=== PATIENT | male | born 1940 | race Caucasian/White ===

== ENCOUNTER 2018-10-13 14:37 | Inpatient (IN) | payer MEDICARE, BC ==
[~2018-10-13 14:37] MED LIST: Gadobenate Dimeglumine 529 MG/1 ML (20ML VIAL) ONE
[2018-10-13 15:20] LABS: #Basophils 0.1 thou/uL (0.0-0.2); #Eosinphils 0.3 thou/uL (0.0-0.7); #Lymphocytes 1.5 thou/uL (1.20-3.40); #Monocytes 0.6 thou/uL (0.11-0.59); #Neutrophils 5.4 thou/uL (1.40-6.50); %Basophils 0.9 % (0.0-1.0); %Eosinophils 3.9 % (0.0-10.0); %Lymphocytes 18.5 % (21.0-51.0); %Monocytes 7.7 % (0.0-10.0); %Neutrophils 69.1 % (42.0-75.0); Hemoglobin 15.4 g/dL (14.0-18.0); Mean Corpuscular HGB CONC 33.3 g/dL (32.0-36.0); Mean Corpuscular Hemoglobin 33.5 pg (27.0-31.0); Mean Platelet Volume 8.2 fL (7.4-10.4); Platelet Count 182 thou/uL (130-400); RBC Distribution Width 11.3 % (11.5-14.5); Red Blood Cell (RBC) Count 4.59 mill/uL (4.70-6.10); White Blood Cell (WBC) Count 7.9 thou/uL (4.8-10.8)
[2018-10-13 15:40] LABS: ALT (SGPT) 15 U/L (8-55); AST (SGOT) 16 U/L (5-34); Albumin 4.4 g/dL (3.4-4.8); Alkaline Phosphatase 45 U/L (40-150); Anion Gap 14 mmol/L (10-20); BUN (Urea Nitrogen) 11 mg/dL (8.4-25.7); Bilirubin, Total 0.6 mg/dL (0.2-1.2); Calc. Creatinine Clearance 0 mL/min (70-130); Calcium 10.3 mg/dL (7.8-10.44); Carbon Dioxide 25 mmol/L (23-31); Chloride 103 mmol/L (98-107); Estimated GFR-MDRD Greater than 90; Globulin 2.6 g/dL (2.4-3.5); Glucose 109 mg/dL (83-110); Sodium 138 mmol/L (136-145)
--- NOTE | 2018-10-13 16:36 | RAD ---
CHEST 1 VIEW: Date: 10/13/18 INDICATION: Emergency examination. Disorientation. COMPARISON: Prior exam dated 08/05/11. FINDINGS: There is patchy opacity within the left lower lobe with suspected small left pleural effusion. Right lung is clear. Heart size is upper limits of normal. Vascular calcification involving the aortic arch is stable. No acute osseous abnormality is evident. IMPRESSION: Patchy air space opacity in the left lower lobe and small left pleural effusion. Pneumonia is not exc luded. Recommend a 2 view chest radiograph for further evaluation. POS: TPC
--- NOTE | 2018-10-13 17:00 | CT ---
HEAD CT WITHOUT CONTRAST: 10/13/18 HISTORY: Two days of disorientation. Drooping of left facial region with vision changes. COMPARISON: None. FINDINGS: Questionable hyperdensity involving right cerebral sulci at the level of the temporal lobe. There is also subtle hyperdensity along the course of the right M1 segment. There is loss of michaels-white matter differentiation with evidence of predominantly vasogenic and to a lesser extent cytotoxic edema. The re is sulcal effacement. There is mass effect upon the right lateral ventricle. There is right to lef t subfalcine herniation of approximately 1.1 cm. Suprasellar cistern is maintained. There is effaceme nt of the right ambient cistern secondary to right uncal herniation. There is entrapment of the right lateral ventricle. Calvarium is intact. Adequate aeration of the sinuses and mastoid air cells. IMPRESSION: Mixture of vasogenic and cytotoxic edema involving the right cerebrum. Linear hyperdensities along t he sulci may represent hemorrhage versus thrombus. There is right to left subfalcine herniation. Find ings are presumed to be due to a subacute infarct. Better interrogation with pre and postcontrast br ain MRI is recommended to evaluate for infarct and exclude an underlying parenchymal lesion. Results of the study discussed with Lorna Quinteros, 10/13/18 at 4:26 p.m. Code CR POS: PRO
[2018-10-13 17:28] LABS: PTT 32.6 SEC (22.9-36.1); Prothrombin Time 12.9 SEC (12.0-14.7)
--- NOTE | 2018-10-13 18:48 | HP ---
PRIMARY CARE PHYSICIAN: Dr. Campbell. CHIEF COMPLAINT: My noticed that my face is drooping and having trouble getting up from a seated position. HISTORY OF PRESENT ILLNESS: Mr. Galeas is a pleasant 78-year-old gentleman, who has a history of hypertension and hyperlipidemia. He was in his usual state of health until about a week ago. His and the patient himself noticed that he was having lots of trouble with his back and his legs. His back was hurting more and his legs were bothering him. He was feeling weak and having difficulty getting up from a seated position. His also noted that he seemed off-balance when he was walking. Then this morning, she noticed that his face seemed to be drooping on the left side and also a day or two before, he had trouble driving home. He had turned down on the wrong street and was confused and could not make it back home. For these reasons, they brought him into the hospital for evaluation. In the ER, he had a CT scan of the brain done, which demonstrated a mixture of vasogenic and cytotoxic edema involving the right cerebrum. There was a [id number] falcine herniation. These were presumed to be due to a subacute infarct. However, an underlying parenchymal lesion could not be excluded. For this reason, he is being admitted. The patient has been evaluated by Neurosurgery in the ER and they are ordering a stat MRI at this time. Otherwise, the patient denies any other complaints such as chest pain or shortness of breath and he had a headache yesterday, but currently no headache, no dizziness, etc. REVIEW OF SYSTEMS: All systems were reviewed and are negative except for that mentioned in the history of present illness. PAST MEDICAL HISTORY: Significant for hypertension and hyperlipidemia. PAST SURGICAL HISTORY: He has had surgery on his right knee as well as back surgery in 2005. SOCIAL HISTORY: He is . He occasionally drinks. He is a nonsmoker. His code status is full code and his is his surrogate decision maker. ALLERGIES: NO KNOWN DRUG ALLERGIES. FAMILY HISTORY: Significant for brother, who had diabetes mellitus. CURRENT MEDICATIONS: Include; 1. Simvastatin 40 mg daily. 2. Losartan 50 mg daily. 3. Aspirin 81 mg a day. 4. Vitamin supplements. PHYSICAL EXAMINATION: GENERAL: He is alert and oriented. He appears to be in no acute distress. He is well developed and well nourished. He is oriented to person, place, and time. VITAL SIGNS: The blood pressure was 130/84, heart rate 65, respiratory rate of 18, and temperature is 98. HEENT: Pupils are equal, round, and reactive. Extraocular muscles are intact. His sclerae are anicteric. Throat; there are no erythema, no exudates. NECK: No adenopathy. No bruits. LUNGS: Clear to auscultation. There is no wheezing. No rales. No rhonchi. CARDIOVASCULAR: His heart sounds are slightly diminished or distant. His heart rate is regular, the rhythm is regular. There are no murmurs or clicks, no rubs. ABDOMEN: Soft. It is nontender and nondistended. Positive for bowel sounds. There is no rebound or guarding. EXTREMITIES: There is no edema. No calf tenderness. No joint effusions or warmth. NEUROLOGIC: His muscle strength, he did have some slight weakness in the left upper extremity with a left drift as well as significant weakness in the left lower extremity with decrease in his ability to plantar flex and dorsiflex the left foot. Cerebellar function was intact as well as his extraocular motions in the eye. His cranial nerves were intact except for a left facial droop. LABORATORY DATA: White blood cell count 7.9, hemoglobin 15.4, hematocrit is 46.2, and platelet count was 182. Sodium is 138, potassium 4.0, chloride is 103, CO2 is 25, BUN of 11, creatinine 0.8, glucose is 109, and calcium is 10.3. Troponin is less than 0.010 and CK was 87. INR was 1.0. IMAGING DATA: He had a chest x-ray, which by my reading, he has a mild cardiomegaly and what appeared to be increase in his pulmonary vascular markings in the right lower lobe, that is by my reading. ASSESSMENT AND PLAN: This is a pleasant 78-year-old gentleman who is being admitted for concern for acute infarct. He had significant changes on CT scan. He will be admitted to the ICU as per Neurosurgery recommendations. A stat MRI is being obtained. If this in fact proves to be an infarct, then we will perform the usual stroke workup including carotid Dopplers, echo and monitoring him on telemetry as well as obtaining a Neurology consult. If it appears to be a parenchymal lesion, then we will follow Neurology recommendations regarding that particular workup. We will treat this as an acute stroke at this time with aspirin therapy as there appears to be no evidence of bleed. Continue his statins and maintain blood pressure control and further recommendations are to follow. Job ID: [id number]
[2018-10-13] MEDS ORDERED: Acetaminophen 325 MG TAB PO PRN (19:27)
[2018-10-13 19:29] VITALS: BMI 27.5
[2018-10-13] MEDS ORDERED: Pantoprazole 40 MG VIAL IVP SCH (19:45)
[2018-10-13] MEDS: Sodium Chloride 0.9% 1,000 ML IV SCH (19:45)
[2018-10-13] MEDS ORDERED: Dexamethasone 4 mg/ml Vial SLOW IVP SCH (19:45)
[2018-10-13] MEDS ORDERED: levETIRAcetam In NaCl (Iso-Os) 1,000 MG in Premix Bag 1 BAG IVPB SCH (19:45)
--- NOTE | 2018-10-13 20:19 | MRI ---
PRE AND POSTCONTRAST ENHANCED MRI IMAGES OF BRAIN 10/13/18 COMPARISON: Comparison made to a previous CT brain from 10/13/18. Pre and postcontrast enhanced MRI images of the brain demonstrate a large right predominantly superio r temporal lobe mass extending upwards into the inferior aspect of the right posterior frontal lobe. Three dimensional measurements of this heterogeneously enhancing mass measure 5.0 x 7.7 x 5.8 cm. The mass has extensive heterogeneous pattern of enhancement with central areas of necrosis and decreased enhancement. There is extensive surrounding distortion of the normal brain anatomy and adjacent area s of extensive vasogenic edema extending into the posterior right frontal lobe, posterior right tempo ral lobe and right basal ganglion including external capsule and posterior limb and anterior limbs of the right internal capsule. There is also extension of edema into the upper margin of the right cere bral peduncle. There is extensive midline shift from right to left with approximately 12.4 mm of righ t to left shift. This is concerning for subfalcine herniation. No significant evidence of left ventri cular hydrocephalus at this time seen. No significant evidence of transtentorial herniation seen. No significant evidence of significant diffusion restriction seen to suggest acute strokes. IMPRESSION: Large right predominantly middle cranial fossa intra-axial mass. Differential diagnosis most likely i ncludes a glioblastoma. Other possibilities could also include primary [employer] lymphoma. POS: PRO
[2018-10-13] MEDS: Famotidine 20 MG TAB PO SCH (21:29)
[2018-10-13] MEDS: Atorvastatin Calcium 40 MG TAB PO SCH (21:29)
[2018-10-13] MEDS: Dexamethasone 4 MG in Sodium Chloride 0.9% 50 ML IVPB SCH (23:49)
--- NOTE | 2018-10-14 01:09 | CON ---
DATE OF CONSULTATION: This is a 50-minute initial patient evaluation of which greater than 50% of the exam was spent in counseling and coordinating the patient's care. Remainder of the exam was spent in review of the patient's medical records and appropriate imaging studies. CHIEF COMPLAINT: Generalized weakness with ataxia and episodes of confusion. HISTORY OF PRESENT ILLNESS: Mr. Galeas is a pleasant 78-year-old male who presents to [facility] for the above complaints. His family brings him into the hospital today. They have noticed that over the past several weeks progressive overall generalized weakness in all extremities, especially worse to the right arm. The patient states he feels as though, however, his legs are weaker than his arms. He has also noticed balance difficulties and feeling very unsteady on his feet. However, he has not used an assistive device for gait instability. He denies blurred vision, nausea, vomiting, but has had difficulty with depth perception over the past several weeks. The patient's also notes an episode earlier this week in which he was driving and suddenly could not remember where he was or what destination he was driving to. He denies history of seizures or personal cancer. He is on 81 mg aspirin for cardiac prophylaxis. Of note, the patient has had similar symptoms into the legs in regard to leg weakness and back pain and did undergo a lumbar procedure in 2005, which the patient does not know what type of procedure was. He states that it was done in [place] and there was no hardware placed in the back. He says that his weakness significantly improved postoperatively, but again this is similar to what he had other than the left arm weakness. He has no history of CVA. Review of the patient's head CT notes perhaps a large mass with vasogenic edema and midline shift. However, there may also be an underlying factor of embolic strokes. There does not appear to be any type of active bleed of the brain. PHYSICAL EXAMINATION: The patient is awake, alert, and appropriate. GCS currently is 15. He follows commands equally in all 4 extremities, though he does have moderate weakness into the left arm and mild weakness into the left leg. He also has some dysmetria in attempting to do hxtnir-vh-pzaq test on the left. He also has pronator drift in the left arm. Otherwise, his pupils are equal, round, and reactive bilaterally. IMPRESSION AND DIAGNOSES: Progressive ataxia, confusion, and left-sided weakness with suspicious findings on CT scan. PLAN: Discussed the patient's case and imaging with Dr. Oneil. At this time, we will proceed with MRI of the brain with and without contrast with stereotactic Brain[facility] protocol and we will check back on the results of this MRI. Otherwise, the patient is very neurologically intact. However, given this midline shift, I would like him to be admitted to the unit with q.1 hour neuro checks. His systolic blood pressure should remain less than 150. Otherwise, we appreciate our medical colleagues following the patient and we will check back on MRI results and discuss treatment plan and options once we have a better idea of the diagnosis. Please call with any changes in the patient's neurologic status. Job ID: [id number]
[2018-10-14 05:44] LABS: #Lymphocytes 0.7 thou/uL (1.20-3.40); #Neutrophils 4.7 thou/uL (1.40-6.50); %Basophils 0.2 % (0.0-1.0); %Eosinophils 0.3 % (0.0-10.0); %Lymphocytes 12.3 % (21.0-51.0); %Monocytes 0.8 % (0.0-10.0); %Neutrophils 86.5 % (42.0-75.0); Hemoglobin 14.8 g/dL (14.0-18.0); Mean Corpuscular HGB CONC 33.5 g/dL (32.0-36.0); Mean Corpuscular Hemoglobin 33.8 pg (27.0-31.0); Mean Platelet Volume 7.9 fL (7.4-10.4); Platelet Count 170 thou/uL (130-400); RBC Distribution Width 11.2 % (11.5-14.5); Red Blood Cell (RBC) Count 4.37 mill/uL (4.70-6.10); White Blood Cell (WBC) Count 5.4 thou/uL (4.8-10.8)
[2018-10-14] MEDS: Dexamethasone 4 MG in Sodium Chloride 0.9% 50 ML IVPB SCH ×4 (05:50→23:49)
[2018-10-14 06:02] LABS: Anion Gap 14 mmol/L (10-20); BUN (Urea Nitrogen) 14 mg/dL (8.4-25.7); Calc. Creatinine Clearance 100 mL/min (70-130); Calcium 10.1 mg/dL (7.8-10.44); Carbon Dioxide 24 mmol/L (23-31); Cardiac Risk 2.5 (Less than 4.5); Chloride 105 mmol/L (98-107); Cholesterol 182 mg/dl (< 200 Desired); Estimated GFR-MDRD Greater than 90; Glucose 153 mg/dL (83-110); HDL Cholesterol 73 mg/dL (>60 Neg Risk); LDL Cholesterol, Calculated 99 mg/dL; Potassium 3.9 mmol/L (3.5-5.1); Sodium 139 mmol/L (136-145); Triglycerides 48 mg/dL (Less than 150)
[2018-10-14] MEDS ORDERED: Aspirin 325 mg Enteric Coated Tablet PO SCH (09:00)
[2018-10-14] MEDS ORDERED: Enoxaparin Sodium 40 MG/0.4 ML SYRINGE SC SCH (09:00)
[2018-10-14] MEDS ORDERED: Pantoprazole 40 MG VIAL IVP SCH (09:00)
--- NOTE | 2018-10-14 09:13 | PDOC.PN ---
- Subjective Encounter Start Date: 10/14/18 Encounter Start Time: 09:11 Mr. Galeas was seen today in follow-up of left facial weakness and left upper extremity weakness. - Objective Resuscitation Status - Order Detail: 10/13/18 18:17 Resuscitation Status Routine Resuscitation Status: FULL: Full Resuscitation MAR Reviewed: Yes Vital Signs & Weight: Vital Signs (12 hours) Temp 10/14/18 07:00 97.7 F 10/14/18 03:00 97.8 F 10/13/18 22:00 98.4 F Weight Weight 202 lb 13.204 oz Most Recent Monitor Data Heart Rate from ECG 67 NIBP 140/79 NIBP BP-Mean 99 Respiration from ECG 18 SpO2 93 I&O: 10/13/18 10/14/18 10/15/18 06:59 06:59 06:59 Intake Total 689 100 Output Total 300 100 Balance 389 0 Result Diagrams: 10/14/18 05:27 10/14/18 05:27 Phys Exam - Physical Examination HEENT: PERRLA left facial droop has improved Respiratory: no wheezing, no rales, no rhonchi, clear to auscultation bilateral Cardiovascular: RRR, no significant murmur, no rub Gastrointestinal: soft, non-tender, no distention, positive bowel sounds Musculoskeletal: no edema + subtle left upper extremity weakness and left lower extremity weakness Dx/Plan (1) Cerebral mass Code(s): G93.9 - DISORDER OF BRAIN, UNSPECIFIED Status: Acute (2) Hypertension Code(s): I10 - ESSENTIAL (PRIMARY) HYPERTENSION Status: Acute (3) Dyslipidemia Code(s): E78.5 - HYPERLIPIDEMIA, UNSPECIFIED Status: Acute - Plan * Right cerebral mass- He has been started on Decadron, and seizure prophylaxis with Keppra * Await further recommendations from Neurosurgery and Neurology * HTN- blood pressure is controlled- will re-start Lisinopril soon
[2018-10-14] MEDS: Famotidine 20 MG TAB PO SCH ×2 (09:16→21:12)
--- NOTE | 2018-10-14 10:58 | CON ---
DATE OF CONSULTATION: 10/13/2018 CONSULTING PHYSICIAN: Hospitalist Services. IMPRESSION: Probable primary brain tumor in the right hemisphere. PLAN: As per Neurosurgery. HISTORY OF PRESENT ILLNESS: Mr. Galeas is a 78-year-old man with history of lumbar disk disease, who came in with complaints of increased difficulty walking over the last week. He denied any lateralized numbness or incoordination. He does not report any headache, nausea, vomiting, or vertigo. He had a CT of the brain, which showed evidence of cerebral edema. MRI of the brain suggests a massive tumor involving the entire right hemisphere with some midline shift. Neurosurgery has been consulted. He has been started on Decadron. PAST MEDICAL HISTORY: Lumbar disk disease. ALLERGIES: NONE REPORTED. SOCIAL HISTORY: No tobacco or alcohol. He is . FAMILY HISTORY: Noncontributory. MEDICATIONS: Medication list was reviewed. . REVIEW OF SYSTEMS: Ten system review of systems is otherwise negative. PHYSICAL EXAMINATION: GENERAL: He is a well-nourished, elderly man, in no acute distress. VITAL SIGNS: Blood pressure 140/79, pulse 67, respirations 15, and saturations 95%. HEENT: Within normal limits. NECK: Supple. EXTREMITIES: No cyanosis or edema. NEUROLOGIC: Alert and appropriate. His speech is fluent and clear. No facial asymmetry is noted. He has equal social services director strength. No tremor. Dysmetria is present. Sensation is subjectively equal. Gait was not tested. IMAGING: Reviewed. EKG shows a sinus rhythm. SUMMARY: A 78-year-old gentleman with probable high-grade primary brain tumor. His care will be guided by Neurosurgery to be available if there is any further problems such as seizures. Job ID: [id number]
--- NOTE | 2018-10-14 11:55 | PRG ---
DATE OF SERVICE: 10/14/2018 This is a 50-minute initial hospital visit note, in which 50 minutes were spent reviewing the imaging, record evaluation, examination of the patient, formulation of plan. Greater than 50% time spent in counseling on Kit Galeas, 1940. I reviewed the notes of my colleague, Alonso Franklin PA-C and reviewed his content. SUBJECTIVE: Mr. Galeas is a 78-year-old man over the last couple weeks has noticed progressive bilateral lower extremity fatigue, but he has not noticed it has been weak necessarily on the left side. He has been preserved otherwise in his neurologic function according to him, but has had headaches for the last couple days. Review of CT in subsequent to that MRI demonstrates an 8 cm x 6 cm large contrast-enhancing mass consistent with a glioblastoma. This involves both the frontal, parietal, and temporal lobes and extends into the deep nuclei of the basal ganglia. Significant mass effect in approximately 1 cm of midline shift. His exam is as laid out by my colleague, Ms. Noemi PRADHAN and I had a long discussion with he, his and his daughter. Frankly, given the patient's age and the very aggressive and large appearance of the lesion consistent with glioblastoma, I would recommend against any intervention. The problem with any attempt at resection here is the patient would still be left with significant mass effect, midline shift making even the pursuit of tissue such as via biopsy or partial resection still fraught with the risk of hemorrhage and persistence of mass effect, midline shift, and edema making any type of adjuvant therapy such as temozolomide and external beam radiation therapy minimized in any quality of life prolongation. My contention would be Decadron and physical therapy to maximize the patient's quality of life. I discussed this in detail and reviewed the imaging with his family. Obviously, they are quite distraught by the diagnosis and the prognosis, but again I would recommend no neurosurgical intervention in my opinion. I think continuing Decadron would be in the patient's best interest as well along with Keppra to minimize any risk of seizure. DIAGNOSES: 1. 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 2. Midline shift with significant vasogenic edema and mass effect. Job ID: [id number]
[2018-10-14] MEDS: Sodium Chloride 0.9% 1,000 ML IV SCH (12:05)
--- NOTE | 2018-10-14 12:31 | CON ---
DATE OF CONSULTATION: 10/14/2018 SERVICE: Pulmonary Medicine. REASON FOR CONSULTATION: ICU patient. HISTORY OF PRESENT ILLNESS: The patient is a very pleasant 78-year-old white male with past medical history significant for essentially nothing. For the past week or so, he was having troubles with his back and his legs. He said they were feeling very heavy. They were bothering him. As such, he presented to the emergency department. There was a very subtle difference in the strength in the left and right. Ultimately, he had an MRI of the head, which showed a very high-grade tumor with vasogenic edema. Ultimately, he was seen both by Neurology and and then Neurosurgery. Given the severity of this lesion, Neurosurgery suggesting that he is not an operative candidate. As such, they are suggesting that his only course of action moving forward is palliative therapy with comfort measures. Hospice has been recommended. On steroids, the patient has had a subtle improvement in some of his vague neurologic complaints. He has yet to get out of bed. He has a good appetite, he is tolerating p.o. PAST MEDICAL HISTORY: 1. Hypertension. 2. Dyslipidemia. PAST SURGICAL HISTORY: Right knee surgery. Back surgery. SOCIAL HISTORY: He drinks alcohol rarely. He is a nonsmoker. He has no exposure to chemicals, dust, asbestos, or tuberculosis. Denies any illicit drugs. FAMILY HISTORY: Noncontributory. ALLERGIES: NO KNOWN DRUG ALLERGIES. MEDICATIONS: List of his inpatient medications was reviewed. No specific updates were made at this time. REVIEW OF SYSTEMS: General, head, ears, eyes, nose, throat, cardiovascular, respiratory, GI, , musculoskeletal, neurologic, and skin are negative except as mentioned in the HPI. PHYSICAL EXAMINATION: VITAL SIGNS: Afebrile. Pulse 72, blood pressure 133/75, respirations 13, and saturation 93% on room air. GENERAL: The patient is awake and alert, in no apparent distress. LUNGS: Excellent air entry. There is no prolonged expiratory phase or wheezing present. HEART: Normal rate and regular. ABDOMEN: Soft, nontender, and nondistended. Bowel sounds are positive. MUSCULOSKELETAL: No cyanosis or clubbing. There is no pitting in the bilateral lower extremities. LABORATORY DATA: WBC 5.4, hemoglobin 14.8, platelets 170,000 and stable. INR 1.0. Basic metabolic profile and liver function studies, troponin, and CK are unremarkable. IMAGING STUDIES: MRI of the brain demonstrates a very high-grade lesion with vasogenic edema around it. This is extremely large. It measures 5 x 7.7 x 5.8 cm. There is some central area of necrosis. GBM and lymphoma are in the differential. It is felt this likely represents a GBM, however. ASSESSMENT: 1. Brain tumor. 2. Hypertension. DISCUSSION AND PLAN: The patient is on appropriate steroids to help with vasogenic edema. Palliative Care consultation will be placed. Physical Therapy will be involved. If no tissue diagnosis is required, the patient is stable for transition out of the hospital. At this point, since he is feeling a little bit better on the steroids, we can transition him out of the ICU to the Stroke Unit, where we will continue to do q.4 hours neuro checks. Pulmonary will continue to follow for the time being. 70 minutes have been devoted to this patient in various activities. I personally reviewed all imaging studies and laboratory data noted within this document. For fifty percent of this time, I was interacting with the patient at the bedside or coordinating care with the care team. For the remainder of the time I was immediately available to the patient in the hospital unit. Job ID: [id number] [facility]
[2018-10-14] MEDS: chlorproMAZINE HCl 25 MG TAB PO PRN (16:45)
[2018-10-14] MEDS: Atorvastatin Calcium 20 MG TAB PO SCH (21:12)
[2018-10-14] MEDS: Atorvastatin Calcium 40 MG TAB PO SCH (21:12)
[2018-10-15] MEDS: Dexamethasone 4 MG in Sodium Chloride 0.9% 50 ML IVPB SCH (05:43)
[2018-10-15] MEDS: Famotidine 20 MG TAB PO SCH ×2 (09:12→21:00)
[2018-10-15] MEDS: Ascorbic Acid 500 mg Chewable Tablet PO SCH (09:12)
[2018-10-15] MEDS: Multivit, Therapeutic 1 TAB PO SCH (09:12)
--- NOTE | 2018-10-15 11:09 | PDOC.PN ---
- Subjective Encounter Start Date: 10/15/18 Encounter Start Time: 11:07 - Objective Resuscitation Status - Order Detail: 10/13/18 18:17 Resuscitation Status Routine Resuscitation Status: FULL: Full Resuscitation MAR Reviewed: Yes Vital Signs & Weight: Vital Signs (12 hours) Temp Pulse Resp BP Pulse Ox 10/15/18 07:36 98.1 F 63 16 160/93 H 94 L 10/15/18 04:00 97.5 F L 58 L 16 136/71 95 10/15/18 00:00 98.1 F 59 L 16 124/69 94 L Weight Admit Weight 202 lb 13.12 oz Weight 202 lb 13.12 oz Most Recent Monitor Data Heart Rate from ECG 75 NIBP 144/77 NIBP BP-Mean 99 Respiration from ECG 19 SpO2 93 I&O: 10/14/18 10/15/18 10/16/18 06:59 06:59 06:59 Intake Total 689 1034 480 Output Total 300 150 Balance 389 884 480 Result Diagrams: 10/14/18 05:27 10/14/18 05:27 Phys Exam - Physical Examination HEENT: PERRLA Respiratory: no wheezing, no rales, no rhonchi, clear to auscultation bilateral Cardiovascular: RRR, no significant murmur, no rub Gastrointestinal: soft, non-tender, positive bowel sounds Musculoskeletal: no edema + subtle left sided weakness Dx/Plan (1) Cerebral mass Code(s): G93.9 - DISORDER OF BRAIN, UNSPECIFIED Status: Acute (2) Hypertension Code(s): I10 - ESSENTIAL (PRIMARY) HYPERTENSION Status: Acute (3) Dyslipidemia Code(s): E78.5 - HYPERLIPIDEMIA, UNSPECIFIED Status: Acute - Plan * Brain mass- likely Glioblastoma- which is non-resectable * Will change Keppra and Decadron to p.o. * Family meeting is planned around 1pm with Palliative Care * Anticipate home with Hospice today or tomorrow.
[2018-10-15] MEDS: hydrALAZINE 20 MG/ML VIAL SLOW IVP PRN (11:45)
[2018-10-15] MEDS: Dexamethasone 4 MG TAB PO SCH ×3 (13:00→23:21)
--- NOTE | 2018-10-15 17:25 | PRG ---
DATE OF SERVICE: 10/15/2018 SERVICE: Pulmonary Medicine. INTERVAL HISTORY: The patient is doing fine from respiratory standpoint. Denies any current chest pain, fevers, chills, nausea, or vomiting. Otherwise, there has been no interval change to the patient's condition. Strength is improving. The patient was able to ambulate with a walker today. He spoke with palliative care. They are not looking and coming up with a plan as far as going home with Hospice at this very moment. PHYSICAL EXAMINATION: VITAL SIGNS: Afebrile, pulse 62, blood pressure 179/80, respirations 18, and saturation 94% on room air. GENERAL: The patient is awake and alert, in no apparent distress. LUNGS: Decent air entry with no prolonged expiratory phase or wheezing. HEART: Normal rate and regular. ABDOMEN: Soft, nontender, nondistended. Bowel sounds are positive. MUSCULOSKELETAL: No cyanosis or clubbing. No pitting in the bilateral lower extremities. NEUROLOGIC: Grossly nonfocal. ASSESSMENT: 1. Brain mass. 2. Hypertension. DISCUSSION AND PLAN: The patient is doing a little bit better with the steroids. At this point, he has no respiratory issues, requirements or Critical Care opinion. As such, I will sign off. Please call with additional questions or concerns through time. Hospice would be appropriate, particularly if tissue diagnosis is not indicated. Job ID: [id number]
[2018-10-15] MEDS: Atorvastatin Calcium 20 MG TAB PO SCH (20:59)
[2018-10-15] MEDS: Lorazepam 0.5 MG TAB PO PRN (21:00)
[2018-10-15] MEDS: levETIRAcetam 500 MG TAB PO SCH (21:00)
[2018-10-15] MEDS: chlorproMAZINE HCl 25 MG TAB PO PRN (23:21)
[2018-10-16] MEDS: Dexamethasone 4 MG TAB PO SCH ×4 (06:27→23:29)
[2018-10-16] MEDS: hydrALAZINE 20 MG/ML VIAL SLOW IVP PRN ×2 (06:28→21:04)
[2018-10-16] MEDS ORDERED: Dextrose 5% in Water 1,000 ML IV PRN (08:08)
[2018-10-16] MEDS ORDERED: Insulin Regular 300 UNITS/3 ML VIAL SC PRN ×2 (08:08)
[2018-10-16] MEDS ORDERED: Dextrose 50% Abboject 50 ML SYRINGE IVP PRN (08:08)
--- NOTE | 2018-10-16 09:15 | PDOC.EVN ---
Event Note - Event Note Event Note: Spoke to bedside nurse. Dr. Campbell has rounded this morning on Mr. Galeas and assumed care as attending. Admitting department notified.
[2018-10-16] MEDS: levETIRAcetam 500 MG TAB PO SCH ×2 (09:32→21:03)
[2018-10-16] MEDS: Famotidine 20 MG TAB PO SCH ×2 (09:32→21:03)
[2018-10-16] MEDS: Ascorbic Acid 500 mg Chewable Tablet PO SCH (09:32)
[2018-10-16] MEDS: Multivit, Therapeutic 1 TAB PO SCH (09:32)
[2018-10-16] MEDS: Atorvastatin Calcium 20 MG TAB PO SCH (21:03)
[2018-10-16] MEDS: Lorazepam 0.5 MG TAB PO PRN (23:29)
[2018-10-16] MEDS: chlorproMAZINE HCl 25 MG TAB PO PRN (23:29)
[2018-10-17] MEDS: Dexamethasone 4 MG TAB PO SCH ×2 (06:28→11:49)
[2018-10-17] MEDS: hydrALAZINE 20 MG/ML VIAL SLOW IVP PRN (06:33)
[2018-10-17] MEDS: Famotidine 20 MG TAB PO SCH (09:53)
[2018-10-17] MEDS: Ascorbic Acid 500 mg Chewable Tablet PO SCH (09:53)
[2018-10-17] MEDS: levETIRAcetam 500 MG TAB PO SCH (09:53)
[2018-10-17] MEDS: Multivit, Therapeutic 1 TAB PO SCH (09:53)
--- NOTE | 2018-10-17 11:06 | CON ---
DATE OF CONSULTATION: 10/17/2018 REASON FOR CONSULTATION: Mr. 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 I was asked to see him to discuss treatment options. HISTORY OF PRESENT ILLNESS: Mr. Galeas apparently on Tuesday had experienced some symptoms of disorientation, being off balance, and some left-sided facial droop. He had, had an occasional headache in the day or two prior to that, which was relieved with Tylenol. He was subsequently advised to go to the emergency room and he had a CT scan of the head, which showed a large mass in the right temporoparietal occipital area of the brain with surrounding vasogenic edema and extensive mass effect. This led to an MRI of the brain, which showed a heterogeneous enhancing mass measuring 5 x 7.7 x 5.8 cm involving the right temporoparietal area of the brain. There is deep involvement into the basal ganglia. There was extensive midline shift. This was felt to likely be a glioblastoma, although [employer] lymphoma was a less likely possibility. He was admitted to the Intensive Care Unit and started on dexamethasone. Neurologically, he has improved since starting the dexamethasone. He is no longer having any disorientation or difficulty with his balance. He was able to ambulate with physical therapy yesterday without a walker. He denies any focal weakness or numbness. He has no nausea or vomiting. He was moved to the floor. He was seen by Neurosurgery, who did not feel that surgical resection or biopsy was possible. They had recommended hospice. He has been seen by Medical Oncology and I am seeing him today also to discuss his treatment options. Again , he presently denies any focal weakness or numbness or headaches. PAST MEDICAL HISTORY: 1. Hypertension. 2. Hypercholesterolemia. 3. Status post right knee surgery. 4. Status post back surgery. 5. He denies other medical surgical problems. MEDICATIONS: 1. Atorvastatin. 2. Dexamethasone. 3. Pepcid. 4. Keppra. 5. Losartan/hydrochlorothiazide. ALLERGIES: NO KNOWN MEDICAL ALLERGIES. SOCIAL HISTORY: He is and lives here in [place], [place]. He is retired. He drinks 1 to 2 alcoholic beverages per day. He has not smoked for about 50 years. Prior to that, he smoked up to 2 packs per day for short period of time. His and daughter are with him today. FAMILY HISTORY: His mother at age 90. His father in his early 80s from myocardial infarction. There is no family history of malignancy or brain tumors. He has a brother, who has type 1 diabetes. REVIEW OF SYSTEMS: A 12 system review of systems are otherwise negative. PHYSICAL EXAMINATION: VITAL SIGNS: Height is 6 feet, weight 202 pounds. Blood pressure is 154/80, pulse is 78, respirations are 16, temperature is 97.9, and O2 saturation is 95%. CONSTITUTIONAL: He is alert and oriented and in no apparent distress. He is well developed and well nourished. Karnofsky performance status is an 80%. EYES: Pupils are equal, round, and reactive to light. EOMs are intact. ENT: Oral cavity and oropharynx without lesion or erythema. Palate elevates symmetrically. Gingiva is intact. NECK: Supple without cervical or supraclavicular adenopathy. No thyromegaly. Larynx midline. LUNGS: Breathing nonlabored. Clear to auscultation and percussion. CARDIOVASCULAR: Heart rate and rhythm without murmur. No lower extremity edema. BACK: No tenderness on fist percussion of the spine. LYMPHATIC: No axillary or inguinal adenopathy. ABDOMEN: Soft, nontender, and nondistended without mass or hepatosplenomegaly. Liver percusses to normal size. SKIN: Without rash or purpura. NEUROLOGIC: Cranial nerves II through XII are grossly intact. Motor strength is 5/5 in both upper and lower extremities in all muscle groups tested. Reflexes are normal and symmetrical. Gait was not tested. RADIOLOGIC DATA: CT scan of the head and MRI of the brain were personally reviewed. Again, he has a heterogeneously-enhancing necrotic-appearing mass measuring 7.7 cm. This is in the temporoparietal occipital area of the brain and does extend deeply into the basal ganglia. There was extensive midline shift. LABORATORY DATA: CBC revealed a white blood cell count of 5400 with a hemoglobin of 14.8, hematocrit of 44.0, and platelet count of 170,000. Chemistry group showed a glucose of 153. Creatinine was normal. GFR was greater than 90. ASSESSMENT: Mr. Galeas is a 78-year-old gentleman, who appears to have a glioblastoma involving the right temporoparietal occipital area. The lesion is quite large with significant midline shift and vasogenic edema. He does not yet have tissue diagnosis. Less likely is a possibility that this could be something else like a central nervous system lymphoma. PLAN: I had a long discussion with Mr. Galeas and his and daughter regarding his probable diagnosis. I explained the difficulty of the diagnosis of glioblastoma and explained that even if this were in a small percentage that were something else other than the glioblastoma, the prognosis was still likely be quite poor. I explained that with the diagnosis of glioblastoma, overall survival is likely only to be measured in months. I agree with the initiation of dexamethasone and Pepcid. In reading Dr. Oneil's note, it appears that he did not feel that either surgical resection or even a biopsy would be beneficial and could likely cause harm because of his mass effect. I will confirm this with Dr. Oneil. He had recommended hospice care along with the steroids. However, the patient and family do not wish to proceed with hospice care. They are considering getting a second opinion at [facility]. I did explain the reason that we would like to get tissue diagnosis. This certainly confirms what we think clinically and also helps us to make treatment decisions off that. If this were glioblastoma, we did discuss potential treatment options including surgery/biopsy, radiation, and chemotherapy. We then discussed the optune device, which is sometimes used after chemotherapy and radiation because they had questions about that from their own research that they have done. Again, I explained that chemotherapy and radiation can extend survival and, given how robust of shape he is in, we could certainly consider that option. But I explained that the extension and survival may only be measured in months, typically in the 3 to 6 month range. The logistics of radiation as well as the benefits and risk of treatment were discussed. Side effects would include, but not be limited to, headache, nausea, vomiting, skin reaction, hair loss, fatigue, lower blood counts, and small risk of damage to the normal brain. We discussed that if no tissue diagnosis is able to be obtained that we could consider whether we should do some radiation therapy for palliation in hopes of extending survival at least a little bit. While this is not preferable, sometimes, it is the only thing we can do when no tissue diagnosis can be obtained. I am not sure if Dr. Ybarra would do chemotherapy if we did not obtain tissue diagnosis. Time was taken to answer all of their questions regarding his situation and possible treatment options. Again, they are working with their family doctor and may decide to get second opinion at [facility]. I will discuss the case with Dr. Oneil and confirm that even a biopsy is not possible. Thank you for this interesting consultation. Job ID: [id number] MILLICENT
--- NOTE | 2018-10-17 11:28 | CON ---
DATE OF CONSULTATION: 10/16/2018 REASON FOR CONSULTATION: Brain mass. HISTORY OF PRESENT ILLNESS: A 78-year-old male presenting with one week of worsening leg weakness and facial droop, found to have a large mass on brain imaging. History was obtained by the patient and medical records. The patient states that he began having weakness in the legs approximately 1 year ago, but ignored it and did not seek medical attention. Within the last couple of weeks, he says that his legs have become progressively weak and he has had difficulty standing as well as imbalance on standing and walking. He had a very mild headache and left facial drooping upon initial presentation that have both resolved and he states that his legs have become stronger since being started on steroids in the hospital. CT scan in the ER showed right cerebrum edema with left subfalcine herniation. The patient had an MRI of the brain that showed a heterogeneously-enhancing mass measuring 5 x 7.7 x 5.8 cm in the right predominantly middle cranial fossa, most likely consistent with a glioblastoma, but could also be a primary [employer] lymphoma versus other. There is extensive midline shift from right to left with approximately 12.4 mm of [id number] shift and concern of subfalcine herniation on MRI. Dr. Oneil assessed the patient and states that any attempt at resection would leave the patient with still a significant mass effect and midline shift that would not be of benefit with too high of a risk at this time and Dr. Oneil also believed that any therapy such as temozolomide or radiation would be minimized in any quality of life prolongation. The patient stated that he was told he only had 4 to 6 weeks to live and nothing could be done and he is very distraught about this as is his family. He would like a second opinion on any potential treatments. REVIEW OF SYSTEMS: Ten-point review of systems negative except as per HPI. PAST MEDICAL HISTORY: Hypertension, hyperlipidemia. PAST SURGICAL HISTORY: Right knee and back surgery in 2006. SOCIAL HISTORY: . Occasional alcohol. Nonsmoker. ALLERGIES: NO KNOWN DRUG ALLERGIES. FAMILY HISTORY: No family history of cancer. CURRENT MEDICATIONS: Reviewed. PHYSICAL EXAMINATION: VITAL SIGNS: Temperature 97.6, pulse 61, respirations 16, saturating 98% on room air, and blood pressure 168/81. GENERAL APPEARANCE: The patient is lying in bed, in no acute distress. HEENT: Normocephalic, atraumatic. Pupils are round and reactive. Sclerae are anicteric. NECK: No cervical lymphadenopathy. LUNGS: Clear to auscultation. CARDIOVASCULAR: Regular rhythm and rate. ABDOMEN: Soft, nondistended, and nontender. EXTREMITIES: No edema. NEUROLOGIC: Cranial nerves II through XII are grossly intact and there is no left facial droop at this time. Strength is 5/5 in upper extremities and right lower extremity and approximately 4 to 4.5 in left lower extremity. LABORATORY DATA: White blood cells 5.4, hemoglobin 14.8, and platelets 170. Sodium 139, potassium 3.9, BUN 14, creatinine 0.78, glucose 153, and calcium 10.1. IMAGING DATA: CT of the head without contrast dated October 13, 2018, shows mixture of vasogenic and cytotoxic edema involving the right cerebrum. There is a [id number] subfalcine herniation. MRI of the brain dated October 13, 2018, shows a heterogeneously-enhancing mass of 5.0 x 7.7 x 5.8 cm with extensive had heterogeneous pattern of enhancement with central areas of necrosis and decreased enhancement with extensive surrounding distortion of normal brain anatomy and adjacent areas of extensive vasogenic edema extending into the posterior right frontal lobe, posterior right temporal lobe, and right basal ganglia including external capsule and posterior limb and anterior limb of the right internal capsule with extension of edema into the upper margin of the right cerebral peduncle. There is extensive midline shift from right to left with approximately 12.4 mm of [id number] shift. This is concerning for subfalcine herniation. No significant evidence of left ventricular hydrocephalus is seen and no evidence of transtentorial herniation. ASSESSMENT AND PLAN: A 78-year-old male with large intracranial mass, presenting to the hospital with left-sided facial droop and lower extremity weakness progressing over the last week. The patient has been started on steroids and his symptoms have dramatically improved. His facial droop has resolved and his lower extremity weakness has markedly improved and he is currently able to walk with a walker and continues to improve. The patient denies any other symptoms and has no other focal signs on exam. The patient is interested in any kind of treatment that could prolong his life and maintain his quality of life. I have discussed with him the potential of chemotherapy, radiation, or concurrent chemotherapy with radiation with Temodar. However, this would be dependent on a biopsy to confirm glioblastoma. I will discuss this case with Dr. Alarcon from Radiation Oncology. The patient does want to move forward with treatment, then he will need a biopsy of the lesion for confirmation. Although, the imaging does appear most likely like a glioblastoma, it could also be a [employer] lymphoma or other cancer as well. We will continue to follow along with you. Thank you for this consult. Job ID: [id number]
[2018-10-17 11:51] VITALS: TEMP 97.6
[2018-10-17 12:06] VITALS: BP 153/79
== END 2018-10-17 14:44 | disposition home or self-care (01) | DRG 54 ==
LOC: ERS 14:37 → CCU 16:54 → 2SE 10-14 14:20
PROVIDERS: ADMIT Specialist; ATTEND Internal Medicine
DX: D49.6 Neoplasm of unspecified behavior of brain (principal); G93.6 Cerebral edema; G93.9 Disorder of brain, unspecified; R29.810 Facial weakness; R27.0 Ataxia, unspecified; I10 Essential (primary) hypertension; E78.5 Hyperlipidemia, unspecified
CPT/HCPCS: 36415; 36416; 70450; 70553; 71045; 80048; 80053; 80061; 82550; 84484; 85025; 85610; 85730; 93005; 93306; 94760; A9577; C9113; J0360; J1100; J1815; J1953; J7050; J8540; Q0161